=== PATIENT | male | born 1970 | race Caucasian/White ===

== ENCOUNTER 2017-08-22 07:11 | Day surgery (SDC) | payer BC ==
--- NOTE | 2017-08-22 09:15 | Operative Note ---
Colonoscopy ([facility]) Procedure date: 08/22/17 Date of : 66 Procedure:Colonoscopy Colonoscopy with cold biopsies and cold snare polypectomy Indications: Mr. Smiley is a 46-year-old gentleman with chronic long-standing diarrhea that has been lifelong. He reports crampy abdominal discomfort that precedes the diarrhea. He states that this is worsened with dairy and salads. He does have some gassiness and bloating. He reports moderate urgency and frequency. He may spend up to 45 minutes in the bathroom. He reports no excessive wiping or straining. He reports no rectal bleeding or mucus. He reports no weight loss or family history of colitis, Crohn's disease or colon cancer. He does state that he feels the pain with spasm moving through his intestines. He reports no fatigue. He has no rash or fevers. He has never had a colonoscopy. Performing Provider: Wagner Smyth MD Referrring Provider: Minna Toussaint M.D. Sedation: Fentanyl 150 mg IV/Versed 9 mg IV Procedure: Prior to the procedure, a history and physical exam was performed, and patient medications and allergies were reviewed. The risks and benefits of the procedure and the sedation options and risks were discussed with the patient. All questions were answered and informed consent was obtained. Patient identification and proposed procedure were verified by the physician and the nurse. The patient was placed in a left lateral decubitus position. Throughout the procedure, the patient's blood pressure, pulse, and oxygen saturations were monitored continuously. Findings: On digital rectal examination there was normal rectal tone. There were no external hemorrhoids. The prostate was 2+, mildly firm but symmetric without nodules. The colonoscope was introduced through the anal canal to the rectum and advanced to the cecum. The ileocecal valve and appendiceal orifice were identified. The scope was advanced a short distance into the ileum which appeared grossly normal. Cold biopsies were taken from the ileum to rule out microscopic ileitis. The scope was then withdrawn into the colon. The cecum, ascending and transverse colon and mucosa were grossly normal. Cold biopsies were taken from the RIGHT colon to rule out microscopic colitis. There were scattered shallow small diverticuli throughout the descending and sigmoid colon (LEFT colon). There were 2 hyperplastic appearing 6-7 mm polyps in the sigmoid colon removed via cold snare polypectomy. The rectum itself was normal. Upon retroflexion within the rectum there were grade 1 internal hemorrhoids. Impressions: 1. Sigmoid colon polyps 2rule out hyperplastic polyps 2. Mild left-sided diverticulosis 3. Grade 1 internal hemorrhoids Recommendations: There was no clear source for the patient's chronic diarrhea but I do feel that some of this represents spastic diverticular disease and IBSD. I am going to recommend dietary measures, fiber bulk, probiotic (align) and anti-spasmodic. I will follow up the biopsies to exclude microscopic colitis. I will have him follow-up in the office for clinical improvement. If he does not respond to Levsin then I would recommend Viberzi. Complications: None EBL (ml): 0 at 0915
[2017-08-22 14:09] VITALS: BP 156/100
== END 2017-08-22 10:15 | disposition home or self-care (01) ==
LOC: SDC 07:11
PROVIDERS: Internal Medicine Gastroenterology
PROC: 0DBN8ZX Excision of Sigmoid Colon, Via Natural or Artificial Opening Endoscopic, Diagnostic (ICD-10-PCS; 2017-08-22)
PROC: 0DBB8ZX Excision of Ileum, Via Natural or Artificial Opening Endoscopic, Diagnostic (ICD-10-PCS; 2017-08-22)
PROC: 0DBK8ZX Excision of Ascending Colon, Via Natural or Artificial Opening Endoscopic, Diagnostic (ICD-10-PCS; principal; 2017-08-22 08:30)
DX: D12.6 Benign neoplasm of colon, unspecified (principal); K57.30 Diverticulosis of large intestine without perforation or abscess without bleeding; K64.0 First degree hemorrhoids